=== PATIENT | female | born 1985 | race Caucasian/White ===

== ENCOUNTER → 2016-11-18 | Outpatient (CLI) | payer OTHER ==
[~2016-11-18] MED LIST: PRENTAB26 PO
[2016-11-18 05:03] LABS: CHOLESTEROL/HDL RATIO 3.5
--- NOTE | 2016-11-25 13:58 | CODING QUERY NO DIAGNOSIS ---
TREATMENT RENDERED WITHOUT A DIAGNOSIS 86 To promote full compliance with coding requirements relating to patient care, physician participation is requested in all cases of toby maker uncertainty. Please assist us with providing a diagnosis/symptom for the test(s) below: A diagnosis/symptom was not documented on your Order. A valid diagnosis/symptom is required to bill all insurances. Please remember that we are unable to code a diagnosis of rule out, probable, possible, questionable, or suspected. DOS 11/18/16 Tests that require a diagnosis: * LIPID PANEL DIAGNOSIS: * GLUCOSE DIAGNOSIS: Provider Signature: Date: Thank you Rachele [facility] Once completed, please kindly fax back to [phone] For questions please call [phone]
== END | disposition home or self-care (01) ==
LOC: C.LAB 03:53
PROVIDERS: ATTEND Physician Assistant
DX: Z01.89 Encounter for other specified special examinations (principal)